=== PATIENT | male | born 1975 | race Caucasian/White ===

== ENCOUNTER 2021-11-05 20:28 | Emergency (ER) | payer OTHER ==
[~2021-11-05] VITALS: Ht 170.2 cm; Wt 79.4 kg
[2021-11-05 21:37] VITALS: BP 152/88
--- NOTE | 2021-11-05 21:44 | NUR ---
PT IN LOBBY.
[2021-11-05] MEDS ORDERED: ONDANSETRON 4 MG/2 ML VIAL IVP ONE (23:30)
[2021-11-05] MEDS ORDERED: MORPHINE SULFATE 4 MG/ML SYR IVP ONE (23:30)
--- NOTE | 2021-11-05 23:44 | NUR ---
PT CALLED FROM [facility] FOR LAB DRAW, NO ANSWER.
--- NOTE | 2021-11-05 23:57 | NUR ---
CALLED NUMBER ON FILE, NO ANSWER.
--- NOTE | 2021-11-05 23:57 | NUR ---
Rimma carranza in [facility] - 11/06/21 at 0011 by MEDRAMY ALECIA.
--- NOTE | 2021-11-06 00:11 | NUR ---
PT TAKEN TO IBAN
--- NOTE | 2021-11-06 00:23 | NUR ---
PT TAKEN TO BED 13
[2021-11-06] MEDS ORDERED: MORPHINE SULFATE 4 MG/ML SYR ONE (00:38)
[2021-11-06 00:49] LABS: BASOPHILS % (AUTO) 0.2 % (0.0-2.0); EOSINOPHILS # (AUTO) 0.1 K/uL (0-0.4); EOSINOPHILS % (AUTO) 0.8 % (0.0-4.0); HEMATOCRIT 45.1 % (36-52); HEMOGLOBIN 15.6 g/dL (12.0-18.0); LYMPHOCYTES # (AUTO) 1.7 K/uL (2.0-11.5); LYMPHOCYTES % (AUTO) 19.1 % (20.5-51.1); MEAN CORPUSCULAR HEMOGLOBIN 29 pg (27-31); MEAN CORPUSCULAR HGB CONC 35 g/dL (33-37); MEAN CORPUSCULAR VOLUME 84.8 fL (80-94); MONOCYTES # (AUTO) 0.5 K/uL (0.8-1.0); NEUTROPHILS # (AUTO) 6.6 K/uL (1.8-7.7); NEUTROPHILS % (AUTO) 73.9 % (42.2-75.2); PLATELET COUNT (AUTO) 250 K/uL (140-450); RED BLOOD CELL COUNT(AUTO) 5.32 MIL/uL (4.20-6.10); RED CELL DISTRIBUTION WIDTH 13.4 % (11.6-13.7); WHITE BLOOD COUNT (AUTO) 8.9 K/uL (4.8-10.8)
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
[2021-11-06 01:18] LABS: ALBUMIN 3.8 g/dL (3.4-5.0); CARBON DIOXIDE 26.9 mmol/L (21-32); POTASSIUM 3.9 mmol/L (3.5-5.1); TOTAL BILIRUBIN 0.4 mg/dL (0.0-1.0)
--- NOTE | 2021-11-06 01:37 | NUR ---
PT RELIEVED OF SOME PAIN. COMFORTABLE. RESTING IN BED.
--- NOTE | 2021-11-06 02:09 | NUR ---
PT RETURNED FROM CT.
[2021-11-06] MEDS ORDERED: IBUP-2218 PO (03:22)
[2021-11-06 03:43] VITALS: BP 148/85
--- NOTE | 2021-11-06 03:43 | NUR ---
Patient discharged with v/s stable. Written and verbal after care instructions given and explained. Patient alert, oriented and verbalized understanding of instructions. Ambulatory with steady gait. All questions addressed prior to discharge. ID band removed. Patient advised to follow up with PMD. Rx of IBUPROFEN 800 MG given. P Opportunity to ask questions provided and answered.
== END 2021-11-06 03:43 | disposition home or self-care (01) ==
LOC: MED 20:28
DX: R10.9 Unspecified abdominal pain (principal); M79.632 Pain in left forearm; M25.561 Pain in right knee; M25.562 Pain in left knee; V98.8XXA Other specified transport accidents, initial encounter; Y93.89 Activity, other specified; Y92.89 Other specified places as the place of occurrence of the external cause; Y99.8 Other external cause status
CPT/HCPCS: 36415; 70450; 71260; 72125; 73090; 73562; 74177; 80053; 85025; 96374; 99285; J2270; Q9967; 90715